=== PATIENT | male | born 1950 | race Two or more races ===

== ENCOUNTER → 2024-08-23 | Outpatient (CLI) | payer OTHER, SELFPAY ==
[2024-08-23 11:07] LABS: Collection Type, Urine Clean Catch
[2024-08-23 11:37] LABS: Basophils % (Auto) 0 % (0-2.5); Eosinophils # (Auto) 0.1 Thou/mm3 (0.0-0.5); Eosinophils % (Auto) 2 % (0-10); Hematocrit 42.5 % (41.0-53.0); Hemoglobin 14.6 g/dL (13.5-16.0); Immature Granulocytes % (Auto) 0 % (0-0); Immature Granulocytes Auto 0.03 Thou/mm3 (0.00-0.00); Lymphocytes % (Auto) 28 % (10-50); Mean Corpuscular HGB Conc 34.4 g/dl (31.0-37.0); Mean Corpuscular Hemoglobin 32.3 pg (25.0-35.0); Mean Corpuscular Volume 94 fL (80-100); Monocytes # (Auto) 0.7 Thou/mm3 (0.0-0.8); Monocytes % (Auto) 9 % (0-12); Neutrophils # (Auto) 4.3 Thou/mm3 (1.8-7.7); Neutrophils % (Auto) 60 % (37-80); Nucleated Red Blood Cell % 0 /100 WBC (0); Platelet Count 270 Thou/mm3 (140-440); RDW Standard Deviation 42.6 fL (35.1-43.9); Red Blood Count 4.52 Miln/mm3 (4.50-5.90); White Blood Count 7.1 Thou/mm3 (3.8-10.6)
[2024-08-23 11:40] LABS: Partial Thromboplastin Time 29.5 Seconds (22.0-36.0); Prothrombin Time 11.4 Seconds (9.0-12.2)
[2024-08-23 11:41] LABS: Bacteria,Urine Rare; Bilirubin,Urine Negative (Negative); Blood,Urine Negative (Negative); Clarity,Urine Clear (Clear/Hazy); Color,Urine Lt-Yellow (Lt Yel-Yel); Glucose, Urine 3+ (Negative); Ketones,Urine Negative (Negative); Leukocyte Esterase,Urine Negative (Negative); Nitrite,Urine Negative (Negative); PH,Urine 6.5 (5.0-7.0); Protein,Urine Trace (Neg - Trace); RBC,Urine 4 /hpf (0-3); Squamous Epithelial Cell,Urine < 1 /hpf (0-5); Urobilinogen,Urine Negative mg/dL (0.0-1.0); WBC,Urine < 1 /hpf (0-5)
[2024-08-23 11:46] LABS: Creatinine MALB Rnd Ur 107 mg/dL (30-125); Microalbumin Creat Ratio 21 mg/gCrea (<30); Microalbumin, Random Urine 23 mg/L (0-300)
[2024-08-23 12:25] LABS: Glucose Estimated Average 174 mg/dL (80-131); Hemoglobin A1C 7.7 % Hgb (4.8-6.0)
[2024-08-23 12:30] LABS: Alanine Aminotransferase 25 U/L (10-49); Albumin, Serum 4.5 gm/dL (3.4-4.8); Albumin/Globulin Ratio 1.7 (1.2-2.2); Alkaline Phosphatase 96 U/L (46-116); Anion Gap 8 (7-16); Aspartate Amino Transferase 14 U/L (0-34); BUN/Creatinine Ratio 17 Ratio (12-20); Bilirubin,Total 0.8 mg/dL (0.3-1.2); Blood Urea Nitrogen 17 mg/dL (9-23); Calcium 9.7 mg/dL (8.3-10.6); Calcium (Corrected) 9.7 mg/dL (8.5-10.1); Carbon Dioxide 25.6 mMol/L (20.0-31.0); Cardiac Risk Estimate 2.7 RATIO (4.0-6.7); Chloride 104 mMol/L (98-107); Cholesterol 172 mg/dL (132-200); Globulin 2.6 gm/dL (2.3-3.5); Glucose 143 mg/dL (74-106); HDL Cholesterol 63 mg/dL (40-60); LDL Cholesterol,Calculated 85 mg/dL (0-130); Osmolality,Calculated 279 (275-295); Potassium 3.7 mMol/L (3.4-5.1); Sodium 138 mMol/L (136-145); Thyroid Stimulating Hormone 1.97 uIU/mL (0.55-4.78); Total Protein 7.1 gm/dL (5.7-8.2); Triglycerides 119 mg/dL (30-150); eGFR > 60 See Note
== END | disposition home or self-care (01) ==
PROVIDERS: PCP Internal Medicine; Referring Provider Internal Medicine; Visit Provider Internal Medicine
DX: E11.9 Type 2 diabetes mellitus without complications (principal); I10 Essential (primary) hypertension; E78.5 Hyperlipidemia, unspecified
CPT/HCPCS: 36415; 80053; 80061; 81001; 82043; 82570; 83036; 84443; 85025; 85610; 85730

== ENCOUNTER → 2024-09-16 | Outpatient (CLI) | payer OTHER, SELFPAY ==
[2024-09-16 11:36] LABS: Basophils % (Auto) 0 % (0-2.5); Eosinophils # (Auto) 0.1 Thou/mm3 (0.0-0.5); Eosinophils % (Auto) 2 % (0-10); Hematocrit 48.5 % (41.0-53.0); Hemoglobin 16.9 g/dL (13.5-16.0); Immature Granulocytes % (Auto) 0 % (0-0); Immature Granulocytes Auto 0.03 Thou/mm3 (0.00-0.00); Lymphocytes # (Auto) 2.3 Thou/mm3 (1.0-4.8); Lymphocytes % (Auto) 30 % (10-50); Mean Corpuscular HGB Conc 34.8 g/dl (31.0-37.0); Mean Corpuscular Hemoglobin 32.4 pg (25.0-35.0); Mean Corpuscular Volume 93 fL (80-100); Monocytes # (Auto) 0.6 Thou/mm3 (0.0-0.8); Monocytes % (Auto) 8 % (0-12); Neutrophils # (Auto) 4.4 Thou/mm3 (1.8-7.7); Neutrophils % (Auto) 59 % (37-80); Nucleated Red Blood Cell % 0 /100 WBC (0); Platelet Count 312 Thou/mm3 (140-440); RDW Standard Deviation 41.6 fL (35.1-43.9); Red Blood Count 5.22 Miln/mm3 (4.50-5.90); White Blood Count 7.5 Thou/mm3 (3.8-10.6)
[2024-09-16 12:09] LABS: Albumin, Serum 4.7 gm/dL (3.4-4.8); Anion Gap 11 (7-16); BUN/Creatinine Ratio 28 Ratio (12-20); Blood Urea Nitrogen 34 mg/dL (9-23); Calcium 10.9 mg/dL (8.3-10.6); Calcium (Corrected) 10.9 mg/dL (8.5-10.1); Carbon Dioxide 26.3 mMol/L (20.0-31.0); Chloride 99 mMol/L (98-107); Creatinine (Component) 1.2 mg/dL (0.6-1.3); Glucose 155 mg/dL (74-106); Osmolality,Calculated 282 (275-295); Phosphorous 3.9 mg/dL (2.4-5.1); Potassium 4.1 mMol/L (3.4-5.1); Sodium 136 mMol/L (136-145); eGFR > 60 See Note
== END | disposition home or self-care (01) ==
LOC: COPL 10:31
PROVIDERS: PCP Internal Medicine; Referring Provider Internal Medicine Cardiovascular Disease; Visit Provider Internal Medicine Cardiovascular Disease
DX: I20.89 Other forms of angina pectoris (principal)
CPT/HCPCS: 36415; 80069; 85025

== ENCOUNTER 2024-09-20 06:32 | Day surgery (SDC) | payer OTHER, SELFPAY ==
--- NOTE | 2024-09-19 08:32 | EKG_ITS ---
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
[2024-09-19 09:51] LABS: Basophils % (Auto) 0 % (0-2.5); Eosinophils # (Auto) 0.1 Thou/mm3 (0.0-0.5); Eosinophils % (Auto) 1 % (0-10); Hematocrit 48.9 % (41.0-53.0); Hemoglobin 16.8 g/dL (13.5-16.0); Immature Granulocytes % (Auto) 0 % (0-0); Immature Granulocytes Auto 0.02 Thou/mm3 (0.00-0.00); Lymphocytes # (Auto) 2.2 Thou/mm3 (1.0-4.8); Lymphocytes % (Auto) 32 % (10-50); Mean Corpuscular HGB Conc 34.4 g/dl (31.0-37.0); Mean Corpuscular Hemoglobin 31.9 pg (25.0-35.0); Mean Corpuscular Volume 93 fL (80-100); Monocytes # (Auto) 0.7 Thou/mm3 (0.0-0.8); Monocytes % (Auto) 10 % (0-12); Neutrophils # (Auto) 3.9 Thou/mm3 (1.8-7.7); Neutrophils % (Auto) 56 % (37-80); Nucleated Red Blood Cell % 0 /100 WBC (0); Platelet Count 323 Thou/mm3 (140-440); RDW Standard Deviation 41.6 fL (35.1-43.9); Red Blood Count 5.27 Miln/mm3 (4.50-5.90); White Blood Count 6.9 Thou/mm3 (3.8-10.6)
[2024-09-19 09:59] LABS: Anion Gap 10 (7-16); BUN/Creatinine Ratio 21 Ratio (12-20); Blood Urea Nitrogen 30 mg/dL (9-23); Calcium 10.3 mg/dL (8.3-10.6); Chloride 95 mMol/L (98-107); Creatinine (Component) 1.4 mg/dL (0.6-1.3); Glucose 270 mg/dL (74-106); Osmolality,Calculated 284 (275-295); Potassium 3.7 mMol/L (3.4-5.1); Sodium 134 mMol/L (136-145); eGFR 53 See Note
[2024-09-19 10:05] LABS: Partial Thromboplastin Time 27.8 Seconds (22.0-36.0); Prothrombin Time 11.2 Seconds (9.0-12.2)
[2024-09-19 11:26] VITALS: BMI 33.2
[2024-09-20] VITALS (10 sets, daily range): BP systolic 111–134; BP diastolic 69–88; PULSE 63–92; RESP 14–16; TEMP 36.1–36.3; O2SAT 95–96; BMI 34.0
[2024-09-20] MEDS: SODIUM CHLORIDE 0.45 % 500 ML 100 ML IV (07:34)
--- NOTE | 2024-09-20 11:06 | ESOP_ITS ---
RE: ZEESHAN LAWLER : 1950 DATE OF OPERATION: 09/20/2024 PROCEDURE PERFORMED: 1. Right and left heart cardiac catheterization, selective coronary angiogram, left ventricular angiogram, CPT 13297 2. Selective cannulation of left subclavian and CHIU _ CPT 43574. 3. Conscious sedation, 1 hour duration. 4. Ultrasound-guided access, right radial artery. DIAGNOSES: Shortness of breath, congestive heart failure, atrial fibrillation, abnormal stress test, crescendo angina pectoris, and severe shortness of breath. HISTORY AND INDICATIONS: The patient is a 74-year-old male with history of hypertension, diabetes, hypercholesterolemia as well as recurrent chest tightness, shortness of breath, and minimal exertion class IV angina. Stress test was inconclusive and slightly abnormal. The patient also has shortness of breath and heart failure symptoms despite medical management, hence right and left heart cardiac catheterization recommended for assessment of coronary artery disease and possible pulmonary hypertension prior to recommending revascularization and also prior to giving cardiac clearance for prostate surgery. DESCRIPTION OF PROCEDURE: The patient was brought to the cardiac catheterization laboratory. He was given 2 mg of Versed and 50 mcg of fentanyl for conscious sedation. Right radial artery cannulated by micropuncture technique and ultrasound guidance used and 6-[place] sheath introduced. Right femoral vein was cannulated by micropuncture technique. Ultrasound guidance used and 7-Mongolian sheath was introduced. Right heart catheterization was performed with Cresco-Pradip catheter, right heart pressure was measured. Left heart catheterization was performed with TIG-4 diagnostic catheter. Selective right and left coronary angiogram performed with TIG-4 diagnostic catheter. TIG-4 diagnostic catheter was also used to perform left subclavian angiogram. The patient tolerated the procedure well, no complications. Cardiac catheterization showed following findings. Right atrial pressure is 4 mmHg. Right ventricular pressure is 22/4 mmHg. Pulmonary artery pressure is 22/10 mmHg. Pulmonary artery wedge pressure is 9 mmHg. Left ventricular pressure 110/15 mmHg. Aortic pressure 110/70. No gradient across the aortic valve. Left ventricular angiogram was not performed. Coronary angiogram showed following findings. Right coronary artery large and dominant, gives of posterior descending artery. There is evidence of long 90% stenosis, entire mid segment of RCA. Distal RCA showed 75% stenosis and some diffuse disease. Left coronary system. Left main coronary artery is normal. Left anterior descending artery showed a 95% stenosis of the proximal left anterior descending artery. Subsequently, there is a large diagonal branch D1 showed 90% stenosis. After the diagonal branch, there is a moderate 60% stenosis and distal left anterior descending artery showed a 90% stenosis. Total of four lesions in LAD diagonal branches. Left circumflex artery gives of one large obtuse marginal branches that showed evidence of 60% to 70% stenosis. SUMMARY OF FINDINGS: 1. Normal right heart pressure hemodynamics. 2. Normal left ventricular function by cardiac echo, ejection fraction 60%. 3. Severe triple vessel coronary artery disease with evidence of 90% stenosis of the right coronary artery, two lesions, mid and distal RCA and severe stenosis of the left anterior descending artery, multiple lesions as well as diagonal branch of the left anterior descending artery and moderate stenosis of circumflex artery. RECOMMENDATIONS: The patient has severe multivessel disease with diabetes mellitus with proximal LAD involvement. The patient is recommended to have bypass graft surgery, cardiothoracic surgery consultation. If cardiac surgery feels like the distal vessels are small or targets are poor, we will consider multivessel complex PCI, but would like to get a cardiothoracic surgery consultation before proceeding with PCI. The patient is also in atrial fibrillation on Eliquis. We will continue Eliquis. We will start on aspirin. Eliquis can be stopped for bypass surgery or PCI. DT: 09:53:18 TT: 11:05:00 Ref: [id number] - TID: [id number] СВЕТЛАНА
== END 2024-09-20 11:40 | disposition home or self-care (01) ==
LOC: SCCL 06:32
PROVIDERS: PCP Internal Medicine; Referring Provider Internal Medicine Cardiovascular Disease; Visit Provider Internal Medicine Cardiovascular Disease
PROC: (CPT 93460; principal; 2024-09-20 07:30)
DX: I25.118 Atherosclerotic heart disease of native coronary artery with other forms of angina pectoris (principal); E11.9 Type 2 diabetes mellitus without complications; E78.00 Pure hypercholesterolemia, unspecified; I11.0 Hypertensive heart disease with heart failure; I48.91 Unspecified atrial fibrillation; I50.9 Heart failure, unspecified
CPT/HCPCS: 93460; 36216; 36415; 80048; 85025; 85610; 85730; 93005; 99152; 99153; A4649; C1769; C1887; C1894; J0171; J0461; J1643; J2250; J2310; J2371; J2405; J3010; J3490; J7040; Q9967; A9270; J2305

== ENCOUNTER → 2024-10-08 | Outpatient (CLI) | payer OTHER, SELFPAY ==
--- NOTE | 2024-10-08 13:58 | XR_ITS ---
Examination: AP chest single view TECHNIQUE: AP sitting portable chest single view Exam date and time: October 08, 2024 1434 hours Comparison December 01, 2020 INDICATIONS: Chest pain congestion beginning 2 weeks ago. FINDINGS: Opacity left base consistent with pneumonia with moderate left pleural fluid Mild heart failure, enlarged cardiac contour with prominent vascular congestion and small right pleural fluid Median sternotomy wires IMPRESSION: Mild heart failure Pneumonia left base
[2024-10-08 15:41] LABS: Basophils % (Auto) 0 % (0-2.5); Eosinophils # (Auto) 0.2 Thou/mm3 (0.0-0.5); Eosinophils % (Auto) 2 % (0-10); Hematocrit 31.9 % (41.0-53.0); Hemoglobin 10.4 g/dL (13.5-16.0); Immature Granulocytes % (Auto) 1 % (0-0); Immature Granulocytes Auto 0.05 Thou/mm3 (0.00-0.00); Lymphocytes # (Auto) 1.6 Thou/mm3 (1.0-4.8); Lymphocytes % (Auto) 19 % (10-50); Mean Corpuscular HGB Conc 32.6 g/dl (31.0-37.0); Mean Corpuscular Hemoglobin 31.9 pg (25.0-35.0); Mean Corpuscular Volume 98 fL (80-100); Monocytes # (Auto) 0.6 Thou/mm3 (0.0-0.8); Monocytes % (Auto) 7 % (0-12); Neutrophils # (Auto) 6.4 Thou/mm3 (1.8-7.7); Neutrophils % (Auto) 72 % (37-80); Nucleated Red Blood Cell % 0 /100 WBC (0); Platelet Count 333 Thou/mm3 (140-440); RDW Standard Deviation 49.5 fL (35.1-43.9); Red Blood Count 3.26 Miln/mm3 (4.50-5.90); White Blood Count 8.9 Thou/mm3 (3.8-10.6)
[2024-10-08 15:59] LABS: Albumin, Serum 3.8 gm/dL (3.4-4.8); Anion Gap 11 (7-16); BUN/Creatinine Ratio 18 Ratio (12-20); Blood Urea Nitrogen 16 mg/dL (9-23); Calcium 9.3 mg/dL (8.3-10.6); Calcium (Corrected) 9.5 mg/dL (8.5-10.1); Carbon Dioxide 24.7 mMol/L (20.0-31.0); Chloride 103 mMol/L (98-107); Creatinine (Component) 0.9 mg/dL (0.6-1.3); Glucose 111 mg/dL (74-106); Magnesium 1.9 mg/dL (1.6-2.6); Osmolality,Calculated 279 (275-295); Phosphorous 3.6 mg/dL (2.4-5.1); Sodium 139 mMol/L (136-145); Uric Acid 4.6 mg/dL (3.7-9.2); eGFR > 60 See Note
== END | disposition home or self-care (01) ==
LOC: CDIM 13:41 → COPL 14:48
PROVIDERS: PCP Internal Medicine; Referring Provider Nurse Practitioner Family; Visit Provider Radiology Diagnostic Radiology
DX: I50.9 Heart failure, unspecified (principal); J18.9 Pneumonia, unspecified organism; N17.9 Acute kidney failure, unspecified; Z86.39 Personal history of other endocrine, nutritional and metabolic disease; Z86.79 Personal history of other diseases of the circulatory system; Z95.1 Presence of aortocoronary bypass graft
CPT/HCPCS: 36415; 71045; 80069; 83735; 84550; 85025

== ENCOUNTER 2024-11-27 10:26 | Day surgery (SDC) | payer OTHER, SELFPAY ==
[2024-11-27] VITALS (19 sets, daily range): BP systolic 84–133; BP diastolic 52–86; PULSE 36–63; RESP 10–25; TEMP 36.1–36.4; O2SAT 93–98
[2024-11-27] MEDS: fentaNYL CIT INJ 50 mCg/ML AMP 2ML 100 MCG IVP (11:51)
[2024-11-27] MEDS: MIDAZOLAM INJ 1 MG/ML VIAL 2 ML 2 MG IV (11:51)
[2024-11-27] MEDS: SODIUM CHLORIDE 0.9% 250 ML 250 ML 999 ML IV (11:55)
--- NOTE | 2024-11-27 12:49 | ESOP_ITS ---
RE: ZEESHAN LAWLER : 1950 DATE OF OPERATION: 11/27/2024 PROCEDURE PERFORMED: 1. Synchronized cardioversion. 2. Conscious sedation 30 minutes duration. DIAGNOSIS: Atrial flutter and fibrillation, symptomatic. HISTORY AND INDICATIONS: The patient is a 74-year-old man with a history of CAD, bypass graft surgery, hypertension, and diabetes mellitus, has symptomatic atrial flutter with shortness of breath and palpitations. Synchronized cardioversion was recommended. The patient has been on Eliquis for the last few months and also on a small dose of beta-padmini. DESCRIPTION OF PROCEDURE: The patient was brought to cardiac catheterization laboratory. Consideration was given with 2 mg of Versed and 50 mcg of fentanyl. Successful synchronized cardioversion performed by using 50 joules of energy, biphasic [employer] defibrillator and 50 joules converted to sinus rhythm. The patient had a long sinus pause more than 4 seconds and developed heart rate of 30 beats per minute, stayed in the 30s for several minutes and settled in the 40-45 range with marked sinus bradycardia. A 12 lead EKG shows marked sinus bradycardia. SUMMARY OF FINDINGS: Successful synchronized cardioversion from atrial flutter to a normal sinus rhythm. RECOMMENDATIONS: The patient appears to have sick sinus syndrome. We will stop the metoprolol and all the other medications. We will monitor closely. If the heart rate remains in the 40s, may require permanent pacemaker implantation for sick sinus syndrome. We will do this as an outpatient. DT: 12:36:08 TT: 12:47:00 Ref: [id number] - TID: [id number]
[2024-11-27] MEDS: MIDODRINE 5 MG TABLET 10 MG PO (13:05)
--- NOTE | 2024-11-27 17:50 | PC.NURSE ---
1155 patient is sleepy, arousable to loud voice and touch. s/p cardioversion, shocked at 50J and went to sinus bradycardia. HR in 30's -40's, Dr. Colmean aware, no new orders made at this time. MD states to monitor patient for 2 hours and if HR remains in 30's he might need pacemaker. No decision made at this time. Ok to discharge patient in 2 hours if heart rate higher than 40. 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 12 lead ekg ordered. 250ml Bolus ordered for low blood pressure. Patient is to stop home medications aspirin, metoprolol and eliquis. patient is to continue metformin, midodrine and atorvastatin. 1211 250ml bolus completed 1214 12 lead EKG completed 1230 patient more awake, HR 49, BP 95/56 1237 new order received for midodrine 10mg, will wait for pharmacy to bring medication 1300 patient is awake, alert, breathing unlabored, at bedside. report given to Irma SMITH who will administer midodrine medication. 12 lead EKG has been read by Dr. Coleman. 1342 report received from Irma SMITH, midodrine PO given at 1305. 1413 VS within normal parameters HR 50, R 14, O2 sat 95% in room air, BP 100/55. will disconnect patient from Vital signs monitors and get patient ready to go home 1435 patient is awake, alert, breathing unlabored. discharge instructions given to patient and Juany, patient discharged home in wheelchair with all belongings. Patient and stated they do not have list of all medications that the patient is currently taking. we have a list which we obtained from dr coleman's H&P and verified the medications with patient and but they don't remember the names of the other new medications which are not on the list. they will hold medications until tomorrow, then they will take the medication list to the doctor's office tomorrow to ask dr coleman which medications they can take and which medications need to be stopped. patient and aware to stop metoprolol, eliquis and aspirin and continue metformin, midodrina and atorvastatin.
== END 2024-11-27 14:35 | disposition home or self-care (01) ==
PROVIDERS: PCP Internal Medicine; Referring Provider Internal Medicine Cardiovascular Disease; Visit Provider Internal Medicine Cardiovascular Disease
PROC: 5A2204Z Restoration of Cardiac Rhythm, Single (ICD-10-PCS; CPT 92960; principal; 2024-11-27 11:30)
DX: I48.91 Unspecified atrial fibrillation (principal); I48.92 Unspecified atrial flutter; I25.10 Atherosclerotic heart disease of native coronary artery without angina pectoris; I10 Essential (primary) hypertension; E11.9 Type 2 diabetes mellitus without complications; Z95.1 Presence of aortocoronary bypass graft; Z01.810 Encounter for preprocedural cardiovascular examination
CPT/HCPCS: 92960; J2250; J3010; J7050; A9270

== ENCOUNTER → 2025-02-11 | Outpatient (CLI) | payer OTHER, SELFPAY ==
[2025-02-11 10:42] LABS: Collection Type, Urine Clean Catch
[2025-02-11 10:57] LABS: Basophils % (Auto) 0 % (0-2.5); Eosinophils # (Auto) 0.1 Thou/mm3 (0.0-0.5); Eosinophils % (Auto) 2 % (0-10); Hematocrit 44.7 % (41.0-53.0); Hemoglobin 15.3 g/dL (13.5-16.0); Immature Granulocytes % (Auto) 0 % (0-0); Immature Granulocytes Auto 0.02 Thou/mm3 (0.00-0.00); Lymphocytes # (Auto) 2.2 Thou/mm3 (1.0-4.8); Lymphocytes % (Auto) 32 % (10-50); Mean Corpuscular HGB Conc 34.2 g/dl (31.0-37.0); Mean Corpuscular Hemoglobin 31.4 pg (25.0-35.0); Mean Corpuscular Volume 92 fL (80-100); Monocytes # (Auto) 0.5 Thou/mm3 (0.0-0.8); Monocytes % (Auto) 8 % (0-12); Neutrophils % (Auto) 58 % (37-80); Nucleated Red Blood Cell % 0 /100 WBC (0); Platelet Count 267 Thou/mm3 (140-440); RDW Standard Deviation 46.9 fL (35.1-43.9); Red Blood Count 4.87 Miln/mm3 (4.50-5.90)
[2025-02-11 10:58] LABS: Bilirubin,Urine Negative (Negative); Blood,Urine Negative (Negative); Clarity,Urine Clear (Clear/Hazy); Color,Urine Lt-Yellow (Lt Yel-Yel); Glucose, Urine 1+ (Negative); Ketones,Urine Negative (Negative); Leukocyte Esterase,Urine Negative (Negative); Nitrite,Urine Negative (Negative); PH,Urine 6.5 (5.0-7.0); Protein,Urine Negative (Neg - Trace); RBC,Urine 2 /hpf (0-3); Specific Gravity,Urine 1.018 (1.001-1.035); Squamous Epithelial Cell,Urine < 1 /hpf (0-5); Urobilinogen,Urine Negative mg/dL (0.0-1.0); WBC,Urine < 1 /hpf (0-5)
[2025-02-11 11:08] LABS: Glucose Estimated Average 186 mg/dL (80-131); Hemoglobin A1C 8.1 % Hgb (4.8-6.0)
[2025-02-11 11:10] LABS: Creatinine MALB Rnd Ur 74 mg/dL (30-125); Microalbumin Creat Ratio 74 mg/gCrea (<30); Microalbumin, Random Urine 55 mg/L (0-300)
[2025-02-11 11:23] LABS: Alanine Aminotransferase 18 U/L (10-49); Albumin, Serum 4.2 gm/dL (3.4-4.8); Albumin/Globulin Ratio 1.5 (1.2-2.2); Alkaline Phosphatase 119 U/L (46-116); Anion Gap 9 (7-16); Aspartate Amino Transferase 20 U/L (0-34); BUN/Creatinine Ratio 13 Ratio (12-20); Bilirubin,Total 0.8 mg/dL (0.3-1.2); Blood Urea Nitrogen 12 mg/dL (9-23); Calcium 9.2 mg/dL (8.3-10.6); Calcium (Corrected) 9.2 mg/dL (8.5-10.1); Carbon Dioxide 24.3 mMol/L (20.0-31.0); Cardiac Risk Estimate 2.6 RATIO (4.0-6.7); Chloride 104 mMol/L (98-107); Cholesterol 170 mg/dL (132-200); Creatinine (Component) 0.9 mg/dL (0.6-1.3); Globulin 2.8 gm/dL (2.3-3.5); Glucose 133 mg/dL (74-106); HDL Cholesterol 65 mg/dL (40-60); LDL Cholesterol,Calculated 84 mg/dL (0-130); Osmolality,Calculated 275 (275-295); Potassium 4.1 mMol/L (3.4-5.1); Sodium 137 mMol/L (136-145); Thyroid Stimulating Hormone 0.79 uIU/mL (0.55-4.78); Triglycerides 103 mg/dL (30-150); eGFR > 60 See Note
[2025-02-17 06:48] LABS: Testosterone, Free,Dialysis 68.6 pg/mL (30.0-135.0); Testosterone, Total, Dialysis 577 ng/dL (250-1100)
== END | disposition home or self-care (01) ==
LOC: COPL 10:07
PROVIDERS: PCP Internal Medicine; Referring Provider Internal Medicine; Visit Provider Internal Medicine
DX: E11.9 Type 2 diabetes mellitus without complications (principal); I10 Essential (primary) hypertension; E78.5 Hyperlipidemia, unspecified
CPT/HCPCS: 36415; 80053; 80061; 81001; 82043; 82570; 83036; 84402; 84403; 84443; 85025

== ENCOUNTER → 2025-07-04 | Outpatient (CLI) | payer OTHER, SELFPAY ==
[2025-07-04 11:55] LABS: Basophils # (Auto) 0.0 Thou/mm3 (0.0-0.2); Basophils % (Auto) 0 % (0-2.5); Eosinophils # (Auto) 0.1 Thou/mm3 (0.0-0.5); Eosinophils % (Auto) 2 % (0-10); Hematocrit 49.1 % (41.0-53.0); Hemoglobin 16.6 g/dL (13.5-16.0); Immature Granulocytes Auto 0.03 Thou/mm3 (0.00-0.00); Lymphocytes # (Auto) 1.8 Thou/mm3 (1.0-4.8); Lymphocytes % (Auto) 26 % (10-50); Mean Corpuscular HGB Conc 33.8 g/dl (31.0-37.0); Mean Corpuscular Hemoglobin 32.4 pg (25.0-35.0); Mean Corpuscular Volume 96 fL (80-100); Monocytes # (Auto) 0.6 Thou/mm3 (0.0-0.8); Monocytes % (Auto) 8 % (0-12); Neutrophils # (Auto) 4.4 Thou/mm3 (1.8-7.7); Neutrophils % (Auto) 64 % (37-80); Nucleated Red Blood Cell # 0.00 Thou/mm3 (0.00-0.00); Nucleated Red Blood Cell % 0 /100 WBC (0); Platelet Count 286 Thou/mm3 (140-440); RDW Standard Deviation 46.1 fL (35.1-43.9); Red Blood Count 5.13 Miln/mm3 (4.50-5.90); White Blood Count 7.0 Thou/mm3 (3.8-10.6)
[2025-07-04 11:57] LABS: Glucose Estimated Average 154 mg/dL (80-131); Hemoglobin A1C 7.0 % Hgb (4.8-6.0)
[2025-07-04 12:01] LABS: Collection Type, Urine Clean Catch
[2025-07-04 12:11] LABS: Prostate Specific Antigen 1.11 ng/mL (0-4.00)
[2025-07-04 12:23] LABS: Alanine Aminotransferase 28 U/L (10-49); Albumin, Serum 4.6 gm/dL (3.4-4.8); Albumin/Globulin Ratio 1.6 (1.2-2.2); Alkaline Phosphatase 101 U/L (46-116); Anion Gap 11 (7-16); Aspartate Amino Transferase 33 U/L (0-34); BUN/Creatinine Ratio 13 Ratio (12-20); Bilirubin,Total 0.9 mg/dL (0.3-1.2); Blood Urea Nitrogen 12 mg/dL (9-23); Calcium 9.3 mg/dL (8.3-10.6); Calcium (Corrected) 9.3 mg/dL (8.5-10.1); Carbon Dioxide 24.9 mMol/L (20.0-31.0); Cardiac Risk Estimate 2.3 RATIO (4.0-6.7); Chloride 106 mMol/L (98-107); Cholesterol 155 mg/dL (132-200); Creatinine (Component) 0.9 mg/dL (0.6-1.3); Globulin 2.8 gm/dL (2.3-3.5); Glucose 114 mg/dL (74-106); HDL Cholesterol 68 mg/dL (40-60); LDL Cholesterol,Calculated 72 mg/dL (0-130); Osmolality,Calculated 283 (275-295); Potassium 4.0 mMol/L (3.4-5.1); Sodium 142 mMol/L (136-145); Total Protein 7.4 gm/dL (5.7-8.2); Triglycerides 76 mg/dL (30-150); eGFR > 60 See Note
[2025-07-04 12:31] LABS: Amorphous Crystals,Urine Present (Absent); Bacteria,Urine Rare; Bilirubin,Urine Negative (Negative); Blood,Urine Negative (Negative); Clarity,Urine Clear (Clear/Hazy); Color,Urine Lt-Yellow (Lt Yel-Yel); Glucose, Urine 4+ (Negative); Ketones,Urine Negative (Negative); Leukocyte Esterase,Urine Negative (Negative); Nitrite,Urine Negative (Negative); PH,Urine 6.0 (5.0-7.0); Protein,Urine Negative (Neg - Trace); RBC,Urine 4 /hpf (0-3); Specific Gravity,Urine 1.030 (1.001-1.035); Squamous Epithelial Cell,Urine 1 /hpf (0-5); Urobilinogen,Urine Negative mg/dL (0.0-1.0); WBC,Urine 10 /hpf (0-5)
[2025-07-04 12:40] LABS: Creatinine MALB Rnd Ur 80 mg/dL (30-125); Microalbumin Creat Ratio 21 mg/gCrea (<30); Microalbumin, Random Urine 17 mg/L (0-300)
== END | disposition home or self-care (01) ==
LOC: COPL 10:26
PROVIDERS: PCP Internal Medicine; Referring Provider Internal Medicine; Visit Provider Urology
DX: E11.9 Type 2 diabetes mellitus without complications (principal); I10 Essential (primary) hypertension; E78.5 Hyperlipidemia, unspecified; N40.1 Benign prostatic hyperplasia with lower urinary tract symptoms
CPT/HCPCS: 36415; 80053; 80061; 81001; 82043; 82570; 83036; 84153; 85025

== ENCOUNTER → 2025-08-11 | Outpatient (CLI) | payer OTHER, SELFPAY ==
[2025-08-11 11:21] LABS: Collection Type, Urine Clean Catch
[2025-08-11 12:17] LABS: Bilirubin,Urine Negative (Negative); Blood,Urine Negative (Negative); Clarity,Urine Clear (Clear/Hazy); Color,Urine Lt-Yellow (Lt Yel-Yel); Culture Indicated,Urine Not Indicated; Glucose, Urine 4+ (Negative); Ketones,Urine Negative (Negative); Leukocyte Esterase,Urine Negative (Negative); Nitrite,Urine Negative (Negative); PH,Urine 6.5 (5.0-7.0); Protein,Urine Negative (Neg - Trace); RBC,Urine 2 /hpf (0-3); Specific Gravity,Urine 1.033 (1.001-1.035); Squamous Epithelial Cell,Urine 1 /hpf (0-5); Urobilinogen,Urine Negative mg/dL (0.0-1.0); WBC,Urine 1 /hpf (0-5)
== END | disposition home or self-care (01) ==
LOC: COPL 10:04 → SLDO 10:14
PROVIDERS: PCP Internal Medicine; Referring Provider Internal Medicine; Visit Provider Internal Medicine
DX: N39.0 Urinary tract infection, site not specified (principal)
CPT/HCPCS: 81001